=== PATIENT | male | born 1980 | race Two or more races ===

== ENCOUNTER 2017-08-28 09:25 | Emergency (ER) | payer SELFPAY ==
[~2017-08-28] VITALS: Ht 167.6 cm; Wt 99.8 kg
[2017-08-28] MEDS ORDERED: CIPROFLOXACIN HCL 250 MG TABLET PO ONE (10:15)
--- NOTE | 2017-08-28 10:23 | NUR ---
Patient discharged to home in stable conditon. Written and verbal after care instructions given. Patient verbalizes understanding of instructions.
[2017-08-28] MEDS ORDERED: CIPROFLOXACIN HCL 250 MG TABLET ONE (10:30)
== END 2017-08-28 10:24 | disposition home or self-care (01) ==
LOC: ER 09:28
DX: A08.4 Viral intestinal infection, unspecified (principal); F42.9 Obsessive-compulsive disorder, unspecified
CPT/HCPCS: A4663